=== PATIENT | male | born 1945 | race Caucasian/White ===

== ENCOUNTER 2019-04-03 14:34 | Emergency (ER) | payer OTHER ==
[~2019-04-03] VITALS: Ht 167.6 cm; Wt 89.4 kg
[~2019-04-03 14:34] MED LIST: (None)64.8 MG; ALLO300; ALLO300 PO; ATOR40TA; ATOR40TA PO; BUME1; BUME1 PO; FISH1000 PO; FLAX; FLAX SEED OIL1000 MG PO; FLONASE ALLERG9.9 ML; Fenofibrate200 MG; Fenofibrate200 MG PO; Fish Oil 10001000 MG; Flonase 0.05% N16 GM; GLUC500 PO; GLUCOSAMINE PO; Inderal60 MG PO; Klor-Con 1010 MEQ PO; L-THYROXINE PO; LEVSOD175 PO; LEVSOD50 PO; LIOT25; LIOT25 PO; LIOT5 PO; LISHYD1012 PO; LISHYD2012 PO; LOPE2C; LOPE2C PO; Levitra20 MG; Levothyroxine200 MCG; METO100 PO; METO100ER PO; Multi-Day Vita1 EACH PO; OXYC5 PO; PHENO60 PO; POTA10T; PRAV20 PO; PROP160ER; PROP80ER PO; SIMVASTATIN PO; TAMS.4ER; TAMS.4ER PO; ZESTORETIC 20-121 EA; ZESTORETIC 20-121 EA PO; [UNRECOGNIZED DRUG - OTHER] INH
[2019-04-03 15:02] LABS: BASOPHILS ABSOLUTE AUTO 0.04 K/mm3 (0.00-0.23); BASOPHILS PERCENT AUTO 1 % (0-2); EOSINOPHILS ABSOLUTE AUTO 0.12 K/mm3 (0.00-0.68); EOSINOPHILS PERCENT AUTO 2 % (0-6); Hemoglobin 11.6 g/dL (13.5-17.5); IMMATURE GRAN ABSOLUTE AUTO 0.02 K/mm3 (0.00-0.10); IMMATURE GRAN PERCENT AUTO 0 % (0-1); LYMPHOCYTES ABSOLUTE AUTO 1.87 K/mm3 (0.84-5.20); LYMPHOCYTES PERCENT AUTO 25 % (21-46); MONOCYTES PERCENT AUTO 11 % (4-13); Mean Corpuscular HGB 30.8 pg (26.0-34.0); Mean Corpuscular HGB Conc 32.2 g/dL (31.5-36.5); Mean Corpuscular Volume 96 fL (80-100); Mean Platelet Volume 11.3 fL (9.1-12.4); NEUTROPHILS ABSOLUTE AUTO 4.59 K/mm3 (1.96-9.15); NEUTROPHILS PERCENT AUTO 62 % (41-73); Platelet Count 208 K/mm3 (150-400); RDW Coefficient Variation 14.6 % (11.7-14.2); RDW Standard Deviation 50.9 fL (35.1-46.3); Red Blood Cell Count 3.77 M/mm3 (4.30-5.90); White Blood Cell Count 7.44 K/mm3 (4.00-11.30)
[2019-04-03 15:18] LABS: Alanine Aminotransfer (ALT/SGP 38 U/L (12-78); Albumin, Blood 3.3 g/dL (3.4-5.0); Albumin/Globulin Ratio 0.8 (0.8-1.8); Alk Phos 97 U/L (50-136); Anion Gap 9 mmol/L (6-16); Aspartate Aminotrans (AST/SGOT 26 U/L (12-37); Bilirubin, Total 0.3 mg/dL (0.1-1.0); Blood Urea Nitrogen 30 mg/dL (8-24); Bun/Creatinine Ratio 21.9 (12.0-20.0); CO2, Blood 27 mmol/L (21-32); Chloride, Blood 108 mmol/L (98-108); Creatinine, Blood 1.37 mg/dL (0.60-1.20); Globulin, Blood 4.3 g/dL (2.2-4.0); Glomerular Filtration Rate 54 (60-); Glucose, Blood 108 mg/dL (70-99); Potassium, Blood 3.9 mmol/L (3.5-5.5); Sodium, Blood 144 mmol/L (136-145); Total Protein, Blood 7.6 g/dL (6.4-8.2); Troponin I <0.015 ng/mL (0.000-0.040)
[2019-04-03 17:02] LABS: Free Thyroxine 1.22 ng/dL (0.70-1.60)
[2019-04-03 17:06] LABS: Thyroid Stimulating Hormone 0.011 uIU/mL (0.360-4.800)
== END 2019-04-03 20:23 | disposition home or self-care (01) ==
LOC: ER 14:34
PROVIDERS: Physician Assistant
DX: I48.91 Unspecified atrial fibrillation (principal); J90 Pleural effusion, not elsewhere classified; E03.9 Hypothyroidism, unspecified
CPT/HCPCS: 36415; 71046; 71260; 80053; 83880; 84439; 84443; 84484; 85025; 85379; 93005; 93010; 96360-59; 99285-25; J7030; Q9967

== ENCOUNTER → 2020-06-09 | Outpatient (CLI) | payer OTHER | END | disposition home or self-care (01) | LOC: PLD 11:20 → LAB SHORT 11:20 | DX: D04.61 Carcinoma in situ of skin of right upper limb, including shoulder (principal) | CPT/HCPCS: 88305 ==

== ENCOUNTER → 2023-06-18 | Outpatient (CLI) | payer OTHER | LOC: LAB 11:56 → PLD 11:56 → LAB SHORT 11:56 | DX: D48.5 Neoplasm of uncertain behavior of skin (principal) | CPT/HCPCS: 88305 ==

== ENCOUNTER → 2024-02-25 | Outpatient (CLI) | payer OTHER ==
[2024-02-25 17:24] LABS: Bun/Creatinine Ratio 25.7 (12.0-20.0); Calcium, Blood 8.8 mg/dL (8.5-10.1); Creatinine, Blood 1.71 mg/dL (0.60-1.20)
== END ==
LOC: LAB SHORT 16:23 → LAB 16:23
PROVIDERS: Nurse Practitioner Family
DX: E11.9 Type 2 diabetes mellitus without complications (principal)
CPT/HCPCS: 80048

== ENCOUNTER 2024-04-29 10:44 | Observation (INO) | payer OTHER ==
[~2024-04-29] VITALS: Ht 167.6 cm; Wt 86.7 kg
[~2024-04-29 10:44] MED LIST changes: -(None)64.8 MG; -ALLO300; -ATOR40TA; -BUME1; -FLONASE ALLERG9.9 ML; -Fenofibrate200 MG; -LIOT25; +LISI5 PO; -Levothyroxine200 MCG; +Levothyroxine200 MCG PO; -POTA10T; +POTA10T PO; -TAMS.4ER; -ZESTORETIC 20-121 EA
[2024-04-29 11:31] LABS: BASOPHILS ABSOLUTE AUTO 0.02 K/mm3 (0.00-0.23); BASOPHILS PERCENT AUTO 0 % (0-2); EOSINOPHILS ABSOLUTE AUTO 0.02 K/mm3 (0.00-0.68); EOSINOPHILS PERCENT AUTO 0 % (0-6); Hemoglobin 10.9 g/dL (13.5-17.5); IMMATURE GRAN ABSOLUTE AUTO 0.03 K/mm3 (0.00-0.10); IMMATURE GRAN PERCENT AUTO 0 % (0-1); LYMPHOCYTES ABSOLUTE AUTO 0.72 K/mm3 (0.84-5.20); LYMPHOCYTES PERCENT AUTO 9 % (21-46); MONOCYTES ABSOLUTE AUTO 0.74 K/mm3 (0.16-1.47); MONOCYTES PERCENT AUTO 9 % (4-13); Mean Corpuscular HGB 32.4 pg (26.0-34.0); Mean Corpuscular HGB Conc 34.1 g/dL (31.5-36.5); Mean Corpuscular Volume 95 fL (80-100); Mean Platelet Volume 11.1 fL (9.1-12.4); NEUTROPHILS PERCENT AUTO 81 % (41-73); Platelet Count 155 K/mm3 (150-400); RDW Coefficient Variation 14.8 % (11.7-14.2); RDW Standard Deviation 51.8 fL (35.1-46.3); Red Blood Cell Count 3.36 M/mm3 (4.30-5.90); White Blood Cell Count 7.93 K/mm3 (4.00-11.30)
[2024-04-29 11:53] LABS: Albumin, Blood 3.5 g/dL (3.4-5.0); Albumin/Globulin Ratio 0.9 (0.8-1.8); Bilirubin, Total 0.9 mg/dL (0.1-1.0); Bun/Creatinine Ratio 28.6 (12.0-20.0); Calcium, Blood 9.4 mg/dL (8.5-10.1); Creatinine, Blood 1.4 mg/dL (0.60-1.20); Globulin, Blood 3.9 g/dL (2.2-4.0); Potassium, Blood 3.9 mmol/L (3.5-5.5); Total Protein, Blood 7.4 g/dL (6.4-8.2)
[2024-04-29] MEDS ORDERED: HYDROmorphone HCl/Pf 1MG SYR IV ONE (16:40)
[2024-04-29] MEDS ORDERED: NS 1,000 ML BAG IR ONE (16:45)
[2024-04-29] MEDS ORDERED: NS 1,000 ML IV SCH (17:40)
[2024-04-29] MEDS ORDERED: JARDIANCE10 MG PO (18:03)
[2024-04-29] MEDS ORDERED: METO100ER PO (18:04)
[2024-04-29] MEDS ORDERED: DIGOX125 MC1 PO (18:06)
[2024-04-29] MEDS ORDERED: IPRATROPIUM BRO30 ML (18:08)
[2024-04-29] MEDS ORDERED: Ondansetron HCl 2 MG / ML 2ML Vial IV PRN (19:45)
[2024-04-29] MEDS ORDERED: HYDROmorphone HCl/Pf 1MG SYR IV PRN (19:50)
[2024-04-29 20:57] VITALS: BP 131/107
[2024-04-29] MEDS ORDERED: PHENobarbital 64.8 MG Tab PO SCH (21:00)
[2024-04-29] MEDS ORDERED: Metoprolol Tartrate 50 MG Tab PO SCH (21:00)
[2024-04-29] MEDS ORDERED: NS 250 ML IV PRN (21:00)
[2024-04-29] MEDS ORDERED: Ampicillin Sod/Sulbactam Sod 1.5 GM in NS 100 ML IV SCH (21:00)
[2024-04-29] MEDS ORDERED: Lactobacil 2-S.Thermo-Bifido 1 1 Cap PO SCH (21:00)
--- NOTE | 2024-04-29 21:10 | NUR ---
WASTED 0.5 TAB OF (64.8 MG) PHENOBARBITOL WITH ANN GONSALEZ RN.
--- NOTE | 2024-04-29 22:12 | NUR ---
ARRIVAL PT NEW ADMIT FROM ER. ARRIVED VIA GOURNEY. ABLE TO SELF TRANSFER. ARRIVED A/OX4, NOTED PT WAS STRUGGLING WITH RECALLING AND EXPLAINGING HIMSELF. REPORTS HE HAD A MASSIVE TBI IN THE PAST, BUT ABLE TO ANSWER ORIENTATION QUESTIONS APPROPRIATELY. REPORTS SEVERE PAIN IN RUQ AND R FLANK, MEDICATED PER EMAR. PT DENIES N/V AT THIS TIME. K PAD GIVEN.
--- NOTE | 2024-04-29 22:38 | NUR ---
WASTED 0.5 TAB OF (64.8 MG) PHENOBARBITOL WITH KAELA HUERTA RN
[2024-04-30] VITALS (14 sets, daily range): BP systolic 109–154; BP diastolic 53–127
--- NOTE | 2024-04-30 05:18 | NUR ---
SHIFT SUMMARY VSS. PT SLEPT WELL T/O THE NIGHT. HAS BEEN NPO SINCE 0000 IN ANTICIPATION FOR SURGERY TODAY, IVF INFUSING PER EMAR. THE PTS ABD REMAINS VERY PAINFUL. PT REPORTS HIS MOST SEVERE PAIN, WHEN HE IS SPEAKING IN ONE WORD SENTENCES, IS 4/10. PT SCORES HIS PAIN VERY LOW ON THE SCALE BUT APPEARS TO BE IN 10/10 PAIN. MEDICATED PER EMAR WITH GOOD RESULTS. K PAD UTILIZED FOR PAIN RELIEF. PT VOIDING INDEPENDENTLY INTO URINAL. OVERALL, NO ACUTE EVENTS NOTED. SURGICAL WIPEDOWN COMPLETE
[2024-04-30 09:08] LABS: BASOPHILS ABSOLUTE AUTO 0.03 K/mm3 (0.00-0.23); BASOPHILS PERCENT AUTO 1 % (0-2); EOSINOPHILS ABSOLUTE AUTO 0.05 K/mm3 (0.00-0.68); EOSINOPHILS PERCENT AUTO 1 % (0-6); Hematocrit 30.9 % (37.0-53.0); IMMATURE GRAN ABSOLUTE AUTO 0.03 K/mm3 (0.00-0.10); IMMATURE GRAN PERCENT AUTO 1 % (0-1); LYMPHOCYTES ABSOLUTE AUTO 0.94 K/mm3 (0.84-5.20); LYMPHOCYTES PERCENT AUTO 18 % (21-46); MONOCYTES ABSOLUTE AUTO 0.53 K/mm3 (0.16-1.47); MONOCYTES PERCENT AUTO 10 % (4-13); Mean Corpuscular HGB 31.7 pg (26.0-34.0); Mean Corpuscular HGB Conc 32.4 g/dL (31.5-36.5); Mean Corpuscular Volume 98 fL (80-100); Mean Platelet Volume 11.4 fL (9.1-12.4); NEUTROPHILS ABSOLUTE AUTO 3.65 K/mm3 (1.96-9.15); NEUTROPHILS PERCENT AUTO 70 % (41-73); Platelet Count 144 K/mm3 (150-400); RDW Coefficient Variation 14.9 % (11.7-14.2); RDW Standard Deviation 53.8 fL (35.1-46.3); Red Blood Cell Count 3.15 M/mm3 (4.30-5.90); White Blood Cell Count 5.23 K/mm3 (4.00-11.30)
[2024-04-30 09:27] LABS: Bun/Creatinine Ratio 29.8 (12.0-20.0); Calcium, Blood 8.9 mg/dL (8.5-10.1); Creatinine, Blood 1.31 mg/dL (0.60-1.20); Potassium, Blood 3.9 mmol/L (3.5-5.5)
--- NOTE | 2024-04-30 10:48 | NUR ---
WHILE PLACING DNR BAND ON PATIENT HE STATED THAT HE WISHES TO HAVE COMPRESSIONS BUT NO TUBES. STATED HE HAS AN ADVANCED DIRECTIVE THAT STATES THIS WELL. PLAN IS TO ASK IF SHE CAN BRING A COPY OF ADVANCED DIRECTIVE. WILL REACH OUT TO PRIMARY PHYSICIAN TO CLARIFY CODE STATUS. PT ELECTED TO KEEP DNR BRACLET OFF AT THIS TIME.
[2024-04-30] MEDS ORDERED: Indocyanine Green 25 MG Vial IV ONE (14:00)
[2024-04-30] MEDS ORDERED: Lactated Ringer's 1,000 ML IV SCH (16:40)
[2024-04-30] MEDS ORDERED: D5W-1/2NS 1,000 ML IV SCH (18:10)
--- NOTE | 2024-04-30 18:37 | NUR ---
SHIFT SUMMARY PT NPO FOR SURGERY TONIGHT. PT CODE STATUS UPDATED TO DNI. VOIDING INTO UNINAL AND AMBULATING TO BATHROOM FOR BOWEL MOVEMENT. PAIN MANAGED PER EMAR. 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 , SON, AND SISTER AT BEDSIDE THROUGHOUT THE DAY. PLEASENT MOOD. NO ACUTE EVENTS NOTED TODAY. USES CALL LIGHT APPROP. CALL LIGHT WITHIN REACH.
--- NOTE | 2024-04-30 18:38 | NUR ---
History, Chart, Medications and Allergies reviewed before start of procedure. Pre-Op teaching done. Pt verbalizes understanding. Patient confirms NPO status and agrees with scheduled surgery. Surgical site prepped with 2% Chlorhexidine cloth wipe.
[2024-04-30] MEDS ORDERED: Flomax0.4 MG PO (18:40)
--- NOTE | 2024-04-30 19:06 | NUR ---
PREOP IN TO DO PRE-OP ASSESSMENT. NOTED BLOOD SUGARS OF 65. PT ENDORCED HAVING HX OF DM. SPOKE TO PHYSICIAN, PT GIVEN D5 1/2 AND Q4H CBG'S. PT SHOWING NO S/S OF HYPOGLYCEMIA. PT TO GO TO SURGERY THIS EVENING. CALL LIGHT WITHIN REACH.
[2024-04-30] MEDS ORDERED: Bupivacaine 0.5% HCl 5 MG/ML 30MLVIAL ONE (19:26)
--- NOTE | 2024-04-30 19:32 | NUR ---
SHIFT CHANGE ASSUME OF CARE OR NURSE TOOK PT BACK TO OR @1913.
[2024-04-30] MEDS ORDERED: propofoL 20 ML IV ONE (19:41)
[2024-04-30] MEDS ORDERED: FentaNYL Citrate 50 MCG/ML 2 ML Injection ONE (19:41)
[2024-04-30] MEDS ORDERED: Rocuronium Bromide 10 MG/ML 5ML Injection IV ONE ×2 (19:51→21:00)
[2024-04-30] MEDS ORDERED: SuccINYLCHOLINE Chloride 100 MG/5 ML 5MLSYR ONE (19:51)
[2024-04-30] MEDS ORDERED: Dexamethasone Sod Phos 10 MG/ML 1ML VIAL ONE (21:00)
[2024-04-30] MEDS ORDERED: Sugammadex Sodium 200 MG/2ML SDV (100 MG/ML) ONE (21:00)
[2024-04-30] MEDS ORDERED: Ondansetron HCl 2 MG / ML 2ML Vial ONE (21:00)
[2024-04-30] MEDS ORDERED: FentaNYL Citrate 50 MCG/ML 2 ML Injection IV SCH (21:40)
--- NOTE | 2024-04-30 23:25 | NUR ---
ARRIVED FROM PACU BACK @APPROX 2215 FROM PACU FOR LAP JULY. SLIDE TRANSFEER TO RM 209 BED. 4 ABD LAP SITES W/TISSUE ADHESIVE NOTED, NO DRAINAGE. PT REPORTS 02/25 R SIDE ABD, MEDICATED PER EMAR. WILL MONITOR.
[2024-05-01 00:08] VITALS: BP 134/92
[2024-05-01 03:42] VITALS: BP 139/98
[2024-05-01 04:50] LABS: Hematocrit 33.9 % (37.0-53.0); Hemoglobin 11.1 g/dL (13.5-17.5); Mean Corpuscular HGB 31.8 pg (26.0-34.0); Mean Corpuscular HGB Conc 32.7 g/dL (31.5-36.5); Mean Corpuscular Volume 97 fL (80-100); Mean Platelet Volume 11.5 fL (9.1-12.4); Platelet Count 166 K/mm3 (150-400); RDW Coefficient Variation 14.8 % (11.7-14.2); Red Blood Cell Count 3.49 M/mm3 (4.30-5.90); White Blood Cell Count 7.71 K/mm3 (4.00-11.30)
[2024-05-01 05:18] LABS: Bun/Creatinine Ratio 29.1 (12.0-20.0); Calcium, Blood 9.2 mg/dL (8.5-10.1); Creatinine, Blood 1.27 mg/dL (0.60-1.20); Potassium, Blood 4.3 mmol/L (3.5-5.5)
[2024-05-01] MEDS ORDERED: Ampicillin Sod/Sulbactam Sod 1.5 GM in NS 100 ML IV SCH (06:00)
--- NOTE | 2024-05-01 06:07 | NUR ---
SHIFT SUMMARY AOX3-FORGETFUL @TIMES. [place]. POD 1-LAP JULY. 4 LAP SITES W/TISSUE ADHESIVE, NO DRAINAGE NOTED, OPEN TO AIR. PT REPORTS 03/28 RUQ ABD PAIN. MEDICATED 2x W/1MG IV DILAUDID, PT ABLE TO REST SOUNDLY. PASSING FLATUS. TOLERATING PO LIQUID. DENIES N/V. CBG >80 W/Q4 CBG CHCKS. PT HAS BEEN UP TO VOID. WILL CONT TO MONITOR.
[2024-05-01 07:09] VITALS: BP 125/83
[2024-05-01] MEDS ORDERED: HYDROcodone 5-APAP 325 TAB PO PRN (07:50)
[2024-05-01] MEDS ORDERED: Magnesium Hydroxide Conc 10 ML UDC PO SCH (08:00)
[2024-05-01] MEDS ORDERED: Insulin Glargine-Yfgn 100 Unit/mL 3 ML SYR SC ONE (12:45)
--- NOTE | 2024-05-01 12:46 | NUR ---
PT CBG 213 BEFORE LUNCH. NO COVERAGE ORDERED. DR. PENNY NOTIFIED, SEE NEW ORDER.
[2024-05-01] MEDS ORDERED: Norco 5-325 Ta1 EACH PO (13:19)
[2024-05-01] MEDS ORDERED: AMOX875 PO (13:20)
[2024-05-01] MEDS ORDERED: DULCOLAX400 MG/51 PO (13:21)
[2024-05-01] MEDS ORDERED: VISBIOME 112.51 EACH PO (13:22)
--- NOTE | 2024-05-01 14:08 | NUR ---
DISCHARGE: PACKET PRINTED AND PT EDUCATED. IV DC'D WNL, TIP INTACT. PT SCRIPTS SENT TO [facility] [address].
== END 2024-05-01 14:12 | disposition home or self-care (01) ==
LOC: ER 10:44 → ERHOLD 10:45 → SURS 10:45
PROVIDERS: Physician Assistant; Surgery; ADMIT Family Medicine
PROC: 8E0W4CZ Robotic Assisted Procedure of Trunk Region, Percutaneous Endoscopic Approach (ICD-10-PCS; principal; 2024-04-30 17:00)
PROC: 0FT44ZZ Resection of Gallbladder, Percutaneous Endoscopic Approach (ICD-10-PCS; principal; 2024-04-30 17:00)
DX: K80.12 Calculus of gallbladder with acute and chronic cholecystitis without obstruction (principal); K66.0 Peritoneal adhesions (postprocedural) (postinfection); E03.9 Hypothyroidism, unspecified; I25.10 Atherosclerotic heart disease of native coronary artery without angina pectoris; R16.0 Hepatomegaly, not elsewhere classified; R56.9 Unspecified convulsions; I50.22 Chronic systolic (congestive) heart failure; Z66 Do not resuscitate; Z79.899 Other long term (current) drug therapy; Z88.8 Allergy status to other drugs, medicaments and biological substances; Z95.1 Presence of aortocoronary bypass graft; Z89.611 Acquired absence of right leg above knee
CPT/HCPCS: 36415; 74177; 76705; 80048; 80053; 82947; 83605; 83690; 85025; 85027; 88304; 93005; 93010; 96361; 96366; 96374; 96375; 96376; 99285-25; A9270; G0378; J0295; J0330; J1100; J1170; J1815; J2405; J2704; J3010; J7030; J7042; J7050; J7120; Q9967

== ENCOUNTER → 2024-08-08 | Outpatient (CLI) | payer OTHER ==
[~2024-08-08] MED LIST changes: +AMOX875 PO; +DIGOX125 MC1 PO; +DULCOLAX400 MG/51 PO; +Flomax0.4 MG PO; +IPRATROPIUM BRO30 ML; +JARDIANCE10 MG PO; +Norco 5-325 Ta1 EACH PO; +VISBIOME 112.51 EACH PO
== END | disposition home or self-care (01) ==
LOC: LAB 14:45 → LAB SHORT 14:45
DX: R30.0 Dysuria (principal)
CPT/HCPCS: 87077; 87086; 87186

== ENCOUNTER → 2024-08-31 | Outpatient (CLI) | payer MEDICARE ==
[2024-08-31 10:21] LABS: Bun/Creatinine Ratio 32.7 (12.0-20.0); Calcium, Blood 8.8 mg/dL (8.5-10.1); Creatinine, Blood 1.5 mg/dL (0.60-1.20); Potassium, Blood 4.3 mmol/L (3.5-5.5)
== END ==
LOC: LAB SHORT 08:01 → LAB 08:01
PROVIDERS: Family Medicine
DX: I10 Essential (primary) hypertension (principal)
CPT/HCPCS: 80048

== ENCOUNTER → 2025-05-25 | Outpatient (CLI) | payer MEDICARE ==
[2025-05-25 15:51] LABS: BASOPHILS ABSOLUTE AUTO 0.02 K/mm3 (0.00-0.23); BASOPHILS PERCENT AUTO 0 % (0-2); EOSINOPHILS ABSOLUTE AUTO 0.16 K/mm3 (0.00-0.68); EOSINOPHILS PERCENT AUTO 3 % (0-6); Hematocrit 35.1 % (37.0-53.0); Hemoglobin 11.6 g/dL (13.5-17.5); IMMATURE GRAN ABSOLUTE AUTO 0.01 K/mm3 (0.00-0.10); IMMATURE GRAN PERCENT AUTO 0 % (0-1); LYMPHOCYTES ABSOLUTE AUTO 1.00 K/mm3 (0.84-5.20); LYMPHOCYTES PERCENT AUTO 19 % (21-46); MONOCYTES ABSOLUTE AUTO 0.47 K/mm3 (0.16-1.47); MONOCYTES PERCENT AUTO 9 % (4-13); Mean Corpuscular HGB Conc 33.0 g/dL (31.5-36.5); Mean Corpuscular Volume 97 fL (80-100); NEUTROPHILS ABSOLUTE AUTO 3.49 K/mm3 (1.96-9.15); NEUTROPHILS PERCENT AUTO 68 % (41-73); NRBC ABSOLUTE 0.00 K/mm3 (0.00-0.02); NRBC Auto 0.0 /100 WBC (0.0-0.2); Platelet Count 152 K/mm3 (150-400); RDW Coefficient Variation 14.6 % (11.7-14.2); RDW Standard Deviation 51.8 fL (35.1-46.3)
[2025-05-25 16:36] LABS: Alanine Aminotransfer (ALT/SGP 36.0 U/L (12-78); Albumin, Blood 3.9 g/dL (3.4-5.0); Albumin/Globulin Ratio 1.0 (0.8-1.8); Anion Gap 13.0 mmol/L (3-11); Aspartate Aminotrans (AST/SGOT 33.0 U/L (12-37); Bilirubin, Total 0.6 mg/dL (0.1-1.0); Blood Urea Nitrogen 48.0 mg/dL (8-24); CO2, Blood 28.0 mmol/L (21-32); Calcium, Blood 9.5 mg/dL (8.5-10.1); Chloride, Blood 106.0 mmol/L (98-108); Creatinine, Blood 1.57 mg/dL (0.60-1.20); Globulin, Blood 4.1 g/dL (2.2-4.0); Glucose, Blood 106.0 mg/dL (70-99); Potassium, Blood 4.0 mmol/L (3.5-5.5); Sodium, Blood 143.0 mmol/L (136-145); Total Protein, Blood 8.0 g/dL (6.4-8.2)
== END ==
LOC: LAB 15:48 → LAB SHORT 15:48
PROVIDERS: Physician Assistant
DX: R06.02 Shortness of breath (principal); Z79.899 Other long term (current) drug therapy
CPT/HCPCS: 80053; 80162; 83880; 84484; 85025